=== PATIENT | male | born 1980 | race Caucasian/White ===

== ENCOUNTER 2017-05-22 10:09 | Emergency (ER) | payer OTHER ==
[2017-05-22] MEDS ORDERED: Sodium Chloride 0.9% 1,000 ML ONE (10:55)
[2017-05-22] MEDS ORDERED: Ondansetron HCl/PF 4 MG/2 ML Vial ONE (10:55)
--- NOTE | 2017-05-22 11:17 | CT ---
CT OF THE ABDOMEN AND PELVIS WITHOUT CONTRAST: Date: 05/22/17 COMPARISON: None. HISTORY: Hematuria after falling off of a hover board yesterday. TECHNIQUE: Multiple contiguous axial images were obtained in a CT of the abdomen and pelvis without contrast. C oronal reformats were performed. FINDINGS: The left kidney has been removed. There is a 2.0 mm calcification at the right ureterovesical juncti on with mild right-sided hydronephrosis. No other calcifications are seen in the right kidney. There is mild diffuse fatty infiltration of the liver without focal liver lesions. The gallbladder, adrenal glands, spleen, and pancreas are unremarkable. No free air, free fluid, or stranding changes are seen in the abdomen or pelvis. The large and small bowel are unremarkable. The appendix is normal. No abdominal or pelvic lymphaden opathy are seen. The osseous structures, visualized inferior thorax, and abdominal wall soft tissues are unremarkable . IMPRESSION: 1. Right distal ureteral calcification with mild right-sided hydronephrosis. 2. Status post left nephrectomy. 3. Fatty liver. POS: [facility]
[2017-05-22 11:25] LABS: Bilirubin Negative (Negative); Glucose, Urine (Dipstick) Negative (Negative); Leukocyte Negative (Negative); Nitrite Negative (Negative); Protein, Urine (Dipstick) 30 mg/dL (Neg-Trace); Specific Gravity, Urine 1.015 (1.005-1.030); Urobilinogen 0.2 mg/dL (0.2-1.0); pH, Urine 7.5 (5.0-9.0)
[2017-05-22 11:25] LABS: #Basophils 0.1 thou/uL (0.0-0.2); #Eosinphils 0.1 thou/uL (0.0-0.7); #Lymphocytes 1.8 thou/uL (1.20-3.40); #Monocytes 0.8 thou/uL (0.11-0.59); #Neutrophils 10.6 thou/uL (1.40-6.50); %Basophils 0.6 % (0.0-1.0); %Eosinophils 0.4 % (0.0-10.0); %Lymphocytes 13.3 % (21.0-51.0); %Monocytes 5.6 % (0.0-10.0); Hemoglobin 17.3 g/dL (14.0-18.0); Mean Corpuscular HGB CONC 34.5 g/dL (32.0-36.0); Mean Corpuscular Hemoglobin 31.1 pg (27.0-31.0); Mean Corpuscular Volume 90.2 fl (80.0-94.0); Mean Platelet Volume 10.1 fL (7.4-10.4); Platelet Count 165 thou/uL (130-400); RBC Distribution Width 11.5 % (11.5-14.5); Red Blood Cell (RBC) Count 5.55 mill/uL (4.70-6.10); White Blood Cell (WBC) Count 13.3 thou/uL (4.8-10.8)
[2017-05-22 11:31] LABS: Blood, Urine Large (Negative); Clarity Hazy (Clear); RBC/HPF GREATER THAN 50-TNTC HPF (0-3); WBC/HPF 0-3 HPF (0-3)
[2017-05-22 11:47] LABS: Anion Gap 14 mmol/L (10-20); BUN (Urea Nitrogen) 16 mg/dL (8.9-20.6); CK (CPK) 147 U/L (30-200); Calc. Creatinine Clearance 0 mL/min (70-130); Calcium 9.2 mg/dL (7.8-10.44); Carbon Dioxide 21 mmol/L (22-29); Chloride 107 mmol/L (98-107); Estimated GFR-MDRD 74; Glucose 121 mg/dL (70-105); Potassium 4.3 mmol/L (3.5-5.1); Sodium 138 mmol/L (136-145)
== END 2017-05-22 12:05 | disposition home or self-care (01) ==
LOC: NAV ERS 10:09
DX: N13.2 Hydronephrosis with renal and ureteral calculous obstruction (principal); R80.9 Proteinuria, unspecified; I10 Essential (primary) hypertension; F17.210 Nicotine dependence, cigarettes, uncomplicated; Z79.899 Other long term (current) drug therapy
CPT/HCPCS: 74176; 80048; 81003; 81015; 82550; 85025; 96361; 96374; 96375; J2270; J2405; J7050